=== PATIENT | male | born 1990 | race Two or more races ===

== ENCOUNTER 2025-03-18 23:22 | Emergency (ER) | payer OTHER, SELFPAY ==
[2025-03-18 23:23] VITALS: BMI 23.3
[2025-03-18 23:59] VITALS: BP 123/81; PULSE 70; RESP 18; TEMP 37.1; O2SAT 97
--- NOTE | 2025-03-19 00:21 | PD.EDANKLE ---
Lower Extremity Injury RME/HPI General Chief Complaint: Ankle/Foot Injury Stated Complaint: DROPPED WOODEN PALLET ON RIGHT GREAT TOE Time Seen by Provider: 03/18/25 23:29 Arrival date/time: 03/18/25 23:22 RME / HPI RME / HPI Narrative: 34-year-old male presents to the ED with complaint of right great toe pain secondary to an injury he sustained at work. Patient states he dropped a pallet on his right great toe while he was wearing his regular tennis shoes. He is painful weightbearing on the toe only and has decreased feeling in the end of his toe. He has not taken any Tylenol or ibuprofen prior to his arrival. He denies any foot pain or any pain to his 2nd, 3rd, 4th or 5th toes. Related Data Home Medications ?Medication ?Instructions ?Recorded ?Confirmed sulfamethoxazole 800 1 tab PO BID 06/25/22 09/15/22 mg-trimethoprim 160 mg tablet (Bactrim DS) Previous Rx's ?Medication ?Instructions ?Recorded hydrocodone 5 mg-acetaminophen 325 1 tab PO BID PRN pain #10 tabs 09/14/22 mg tablet ibuprofen 800 mg tablet 800 mg PO TID PRN pain #30 tabs 09/14/22 ibuprofen 600 mg tablet 600 mg PO TID PRN pain #15 tabs 03/19/25 Allergies Allergy/AdvReac Type Severity Reaction Status Date / Time No Known Allergies Allergy Verified 03/18/25 23:23 Review of Systems Review of Systems Systems Reviewed: All systems reviewed, normal except as documented Past Medical History Past Medical History CARDIAC: Negative Cardiac Disorders or Congestive Heart Failure RESPIRATORY: Negative Chronic Obstructive Pulmonary Disease (COPD) or Asthma GENITOURINARY: Negative Renal Disease ENDOCRINE: Negative Diabetes Mellitus Type 1 or Diabetes Mellitus Type 2 HEMATOLOGIC: Negative Sickle Cell Disease Social History SMOKING STATUS: Former smoker ED Exam Narrative Physical exam: Alert and oriented, very pleasant 34-year-old male, no acute distress. Lungs are clear, regular rate and rhythm. No tenderness to the ankle areas or proximal or mid foot. No tenderness to the 2nd, 3rd, 4th, or 5th toes. No tenderness to th right great MTP joint. Tenderness noted to the proximal at distal phalanx of the right great toe. Mild subungual hematoma noted to the right great toenail. Sensory mildly decreased to the right great toe. Course Orders Category Date Time Status XR toe RT min 2V Stat Exams 03/19/25 00:24 Taken Ibuprofen Tab [Motrin Tab] Med 03/19/25 00:24 Discontinued 600 mg PO X1 ONE Vital Signs Vital signs: Vital Signs Temperature 98.7 F 03/18/25 23:59 Pulse Rate 70 03/18/25 23:59 Respiratory Rate 18 03/18/25 23:59 Blood Pressure 123/81 03/18/25 23:59 Pulse Oximetry (%) 97 03/18/25 23:59 Oxygen Delivery Method Room Air 03/18/25 23:59 PROCEDURES: Procedure Comment Fenestration of right great toenail subungual hematoma with Bovie cautery loop. Small amount of bright red blood removed. Extremity Injury, Lower Medications / Prescriptions Medication administrations:: Medication Administration History Discontinued Medications Ibuprofen (Ibuprofen Tab 600 Mg Tablet) 600 mg PO X1 ONE Stop: 03/19/25 00:25 Last Admin: 03/19/25 00:36 Dose: 600 mg Documented By: CHACHO Discharge Plan Plan Patient Disposition: HOME (Self Care) Discharge Disposition comment: Stable Prescriptions/Referrals Prescriptions/Med Rec: New ibuprofen 600 mg tablet 600 mg PO TID PRN (Reason: pain) Qty: 15 0RF No Action sulfamethoxazole-trimethoprim [Bactrim DS] 800-160 mg tablet 1 tab PO BID ibuprofen 800 mg tablet 800 mg PO TID PRN (Reason: pain) Qty: 30 0RF hydrocodone-acetaminophen 5-325 mg tablet 1 tab PO BID MDD 10 PRN (Reason: pain) Qty: 10 0RF Referrals: No Primary/Family,Physician [Primary Care Provider] - In 1 week Problem List Clinical Impression: Contusion of toe of right foot Patient/Caregiver Discharge Instructions Education Materials: ED Contusion, Lower Extremity, ED Subungual Hematoma Additional Instructions: Take the Ibuprofen as needed for pain and swelling. Ice and elevate the foot as much as possible. Follow-up with your primary care physician in 24 to 48 hours. Return to the ED for any new or worsening symptoms. Print Language: Australian Stand Alone Forms: Sadie Award Info., Patient Portal Info Letter PA/CERTIFIED [employer] BUILDING ENGINEER Supervising Physician PA/CERTIFIED [employer] ENGINEER Supervising Physician: Dr. Bernardo
--- NOTE | 2025-03-19 00:24 | XR_ITS ---
Examination: Right foot first digit 2 views TECHNIQUE: AP lateral right foot first digit 2 views Date and time: March 19, 2025 0043 hours INDICATIONS: Injury to the foot today with first digit pain. FINDINGS: No acute fracture. No dislocation. No foreign body IMPRESSION: No acute fracture.
[2025-03-19] MEDS: IBUPROFEN TAB 600 MG TABLET PO (00:36)
[2025-03-19 02:50] VITALS: BP 128/76; PULSE 72; RESP 18; TEMP 37; O2SAT 99
== END 2025-03-19 02:52 | disposition home or self-care (01) ==
PROVIDERS: Emergency Provider Emergency Medicine
DX: S90.121A Contusion of right lesser toe(s) without damage to nail, initial encounter (principal); W20.8XXA Other cause of strike by thrown, projected or falling object, initial encounter; Y99.0 Civilian activity done for income or pay
CPT/HCPCS: 11740; 73660; 99283; A9270